=== PATIENT | male | born 1970 | race African-American/Black ===

== ENCOUNTER 2022-12-04 16:27 | Emergency (ER) | payer OTHER ==
[~2022-12-04] VITALS: Ht 144.8 cm; Wt 62.6 kg
[2022-12-04 16:38] VITALS: BP 115/71; TEMP 97.7
== END 2022-12-04 17:23 | disposition home or self-care (01) ==
LOC: ED 16:27
DX: S30.812A Abrasion of penis, initial encounter (principal); X58.XXXA Exposure to other specified factors, initial encounter
CPT/HCPCS: 99281